=== PATIENT | female | born 1975 | race African-American/Black ===

== ENCOUNTER 2020-12-18 23:40 | Emergency (ER) | payer MEDICAID ==
[2020-12-19] MEDS ORDERED: Ketorolac Tromethamine 15 MG/ML VIAL ONE (00:10)
[2020-12-19] MEDS ORDERED: diphenhydrAMINE 50 MG/ML VIAL ONE (00:10)
[2020-12-19] MEDS ORDERED: Metoclopramide HCl 10 MG/2 ML VIAL ONE (00:10)
== END 2020-12-19 03:31 | disposition home or self-care (01) ==
LOC: CSHERS 23:40
DX: R51.9 Headache, unspecified (principal); I10 Essential (primary) hypertension; F17.210 Nicotine dependence, cigarettes, uncomplicated
CPT/HCPCS: 96365; 96375; J1200; J1885; J2765

== ENCOUNTER 2021-07-11 17:13 | Emergency (ER) | payer MEDICAID, SELFPAY ==
[2021-07-11] MEDS ORDERED: Ketorolac Tromethamine 30 MG/ML VIAL ONE (17:52)
== END 2021-07-11 18:23 | disposition home or self-care (01) ==
LOC: CSHERS 17:13
DX: K04.7 Periapical abscess without sinus (principal); I10 Essential (primary) hypertension; F17.210 Nicotine dependence, cigarettes, uncomplicated
CPT/HCPCS: 96372; 99283; J1885

== ENCOUNTER 2022-12-14 16:22 | Emergency (ER) | payer BC, SELFPAY ==
[2022-12-14] MEDS ORDERED: Acetaminophen 500 MG TAB ONE (17:56)
[2022-12-14] MEDS ORDERED: Ketorolac Tromethamine 30 MG/ML VIAL ONE (17:56)
== END 2022-12-14 18:23 | disposition home or self-care (01) ==
LOC: CSHERS 16:22
DX: G43.909 Migraine, unspecified, not intractable, without status migrainosus (principal); I10 Essential (primary) hypertension; F17.210 Nicotine dependence, cigarettes, uncomplicated
CPT/HCPCS: 96372; 99283; J1885